=== PATIENT | male | born 1960 | race American Indian/Alaskan Native ===

== ENCOUNTER 2016-10-07 06:57 | Emergency (ER) | payer MEDICARE ==
[2016-10-07 08:16] LABS: Basophils % (Auto) 0.4 % (0.0-1.8); Eosinophils % (Auto) 4.9 % (0.0-4.3); Hematocrit 37.5 % (35.5-45.6); Mean Corpuscular HGB Conc 32 % (32-34); Mean Corpuscular Hemoglobin 27 pg (28-32); Mean Corpuscular Volume 84 fl (84-94); Platelet Count 170 K/mm3 (140-440); Red Blood Count 4.49 M/mm3 (3.65-5.03); Red Cell Distribution Width 14.5 % (13.2-15.2); White Blood Count 5.2 K/mm3 (4.5-11.0)
[2016-10-07 08:31] LABS: Creatine Kinase MB 1.6 ng/mL (0.0-4.0)
[2016-10-07 08:33] LABS: Anion Gap 15 mmol/L; BUN/Creatinine Ratio 13.07; Blood Urea Nitrogen 17 mg/dL (9-20); Calcium 9.1 mg/dL (8.4-10.2); Carbon Dioxide 28 mmol/L (22-30); Chloride 96.5 mmol/L (98-107); Creatine Kinase 178 units/L (55-170); Glucose 328 mg/dL (75-100); Potassium 5.1 mmol/L (3.6-5.0); Sodium 134 mmol/L (137-145)
--- NOTE | 2016-10-07 11:45 | Emergency Department Report ---
ED Extremity Problem HPI - General Chief complaint: Extremity Problem,Nontraumatic Stated complaint: LT SHOULDER PAIN AND ARM PAIN Time Seen by Provider: 10/07/16 11:31 Source: patient, RN notes reviewed Mode of arrival: Ambulatory Limitations: No Limitations - History of Present Illness Initial comments: 56-year-old male presents to the emergency department complaining of left shoulder pain that he states began 6 days ago. Pain has been intermittent. He states it radiates to the top of his left shoulder down his left arm to his wrist. He does report some mild numbness in his hand. He also states that he does feel slight pain in the left side of his neck. Pain is described as cramping in nature. He states occasionally he also has cramping pain in his left chest. He denies difficulty breathing, nausea, vomiting, dizziness, or diaphoresis. He denies injury. Review of the nursing notes shows that patient stated that symptoms started 6 weeks ago, but again the patient states this started 6 days ago. There are no other complaints. MD Complaint: extremity pain -: Gradual, days(s) (6) Location: left, upper extremity History of Same: No -: Yes myalgia Radiation: distal Severity scale (0 -10): 4 Quality: other (cramping) Consistency: intermittent Improves with: nothing Worsens with: nothing - Related Data Previous Rx's Medication Instructions Recorded Last Taken Type Omeprazole [PriLOSEC] 20 mg PO DAILY #30 capsule. 07/22/13 11/08/14 Rx Pravastatin Sodium [Pravastatin] 20 mg PO QHS #30 tablet 07/22/13 11/08/14 Rx Azithromycin [Zithromax Z-SERENE] 250 mg PO DAILY #6 tablet 11/08/14 Unknown Rx HYDROcodone/APAP 5-325 [[place] 1 each PO Q8HR PRN #10 tablet 11/08/14 Unknown Rx 5/325] Albuterol Sulfate [Ventolin HFA] 2 puff IH Q4H PRN #1 hfa.aer.ad 03/08/15 Unknown Rx Azithromycin [Zithromax] 250 mg PO QDAY #4 tablet 03/08/15 Unknown Rx Promethazine /Codeine 5 ml PO Q6H PRN #120 ml 03/08/15 Unknown Rx [Phenergan/Codeine 6.25-10 mg/5Ml] Docusate Sodium [Colace] 100 mg PO BID PRN #20 capsule 05/06/16 Unknown Rx HYDROcodone/APAP 5-325 [[place] 1 each PO Q6HR PRN #10 tablet 05/06/16 Unknown Rx 5/325] metFORMIN [Glucophage] 1,000 mg PO BID #60 tablet 07/31/16 Unknown Rx Cyclobenzaprine [Flexeril] 10 mg PO TID PRN #20 tablet 10/07/16 Unknown Rx Lisinopril [Zestril TAB] 20 mg PO QDAY #30 tablet 10/07/16 Unknown Rx Prednisone [predniSONE 5 mg (6-Day 5 mg PO .TAPER #1 tab.ds.pk 10/07/16 Unknown Rx Pack, 21 Tabs)] Allergies Allergy/AdvReac Type Severity Reaction Status Date / Time Penicillins Allergy Swelling Verified 02/21/13 02:27 ED Review of Systems ROS: Stated complaint: LT SHOULDER PAIN AND ARM PAIN Other details as noted in HPI Comment: All other systems reviewed and negative Musculoskeletal: as per HPI (left shoulder pain) Neurological: paresthesias ED Past Medical Hx - Past Medical History Previous Medical History?: Yes Hx Hypertension: Yes Hx Diabetes: Yes Additional medical history: Rhabdomyolysis. Gout - Surgical History Past Surgical History?: No - Family History Family history: no significant - Social History Smoking Status: Never Smoker Substance Use Type: None - Medications Home Medications: Home Medications Medication Instructions Recorded Confirmed Last Taken Type Omeprazole [PriLOSEC] 20 mg PO DAILY #30 capsule. 07/22/13 11/08/14 11/08/14 Rx Pravastatin Sodium [Pravastatin] 20 mg PO QHS #30 tablet 07/22/13 11/08/1411/08 Rx Azithromycin [Zithromax Z-SERENE] 250 mg PO DAILY #6 tablet 11/08/14 Unknown Rx HYDROcodone/APAP 5-325 [[place] 1 each PO Q8HR PRN #10 tablet 11/08/14 Unknown Rx 5/325] Albuterol Sulfate [Ventolin HFA] 2 puff IH Q4H PRN #1 hfa.aer.ad 03/08/15 Unknown Rx Azithromycin [Zithromax] 250 mg PO QDAY #4 tablet 03/08/15 Unknown Rx Promethazine /Codeine 5 ml PO Q6H PRN #120 ml 03/08/15 Unknown Rx [Phenergan/Codeine 6.25-10 mg/5Ml] Docusate Sodium [Colace] 100 mg PO BID PRN #20 capsule 05/06/16 Unknown Rx HYDROcodone/APAP 5-325 [[place] 1 each PO Q6HR PRN #10 tablet 05/06/16 Unknown Rx 5/325] metFORMIN [Glucophage] 1,000 mg PO BID #60 tablet 07/31/16 Unknown Rx Cyclobenzaprine [Flexeril] 10 mg PO TID PRN #20 tablet 10/07/16 Unknown Rx Lisinopril [Zestril TAB] 20 mg PO QDAY #30 tablet 10/07/16 Unknown Rx Prednisone [predniSONE 5 mg (6-Day 5 mg PO .TAPER #1 tab.ds.pk 10/07/16 Unknown Rx Pack, 21 Tabs)] ED Physical Exam - General Limitations: No Limitations General appearance: alert, in no apparent distress - Head Head exam: Present: atraumatic, normocephalic - Eye Eye exam: Present: normal appearance, PERRL, EOMI - ENT ENT exam: Present: normal exam, normal orophraynx, mucous membranes moist - Neck Neck exam: Present: normal inspection, full ROM. Absent: tenderness - Respiratory Respiratory exam: Present: normal lung sounds bilaterally. Absent: respiratory distress, chest wall tenderness - Cardiovascular Cardiovascular Exam: Present: regular rate, normal rhythm, normal heart sounds - GI/Abdominal GI/Abdominal exam: Present: soft, normal bowel sounds. Absent: distended, tenderness - Extremities Exam Extremities exam: Present: normal inspection, full ROM, tenderness (mild tenderness to palpation of the left superior deltoid and trapezius muscle. No spasm noted.) - Back Exam Back exam: Present: normal inspection, full ROM. Absent: tenderness - Neurological Exam Neurological exam: Present: alert, oriented X3. Absent: motor sensory deficit - Skin Skin exam: Present: warm, dry, intact ED Course Vital Signs 10/07/16 07:41 Temperature 97.8 F Pulse Rate 58 L Respiratory 20 Rate Blood Pressure 151/76 O2 Sat by Pulse 100 Oximetry ED Medical Decision Making - Lab Data Result diagrams: 10/07/16 08:02 10/07/16 08:02 - EKG Data -: EKG Interpreted by Me EKG shows normal: sinus rhythm, axis, intervals, QRS complexes Rate: bradycardia - EKG Data When compared to previous EKG there are: no significant change Interpretation: unchanged when compared t (11/07/2014), nonspecific ST-T wave abril - Medical Decision Making Lab results reviewed and discussed with the patient. Symptoms and exam findings are consistent with cervical radiculopathy. Patient will be treated symptomatically and discharged home to follow up with his primary care physician. - Differential Diagnosis atypical chest pain, cervical radiculopathy, muscle spasm Critical care attestation.: If time is entered above; I have spent that time in minutes in the direct care of this critically ill patient, excluding procedure time. ED Disposition Clinical Impression: Cervical radiculopathy Disposition: DISCHARGED TO HOME OR SELFCARE Is pt being admited?: No Condition: Stable Instructions: Cervical Radiculopathy (ED) Prescriptions: Cyclobenzaprine [Flexeril] 10 mg PO TID PRN #20 tablet PRN Reason: Muscle Spasm Lisinopril [Zestril TAB] 20 mg PO QDAY #30 tablet Prednisone [predniSONE 5 mg (6-Day Pack, 21 Tabs)] 5 mg PO .TAPER #1 tab.ds.pk Referrals: PRIMARY CARE, [Primary Care Provider] - 3-5 Days Time of Disposition: 11:45
[2016-10-07 12:05] VITALS: BP 151/72
== END 2016-10-07 12:03 | disposition home or self-care (01) ==
LOC: ED 06:57
DX: M54.12 Radiculopathy, cervical region (principal); I10 Essential (primary) hypertension; E11.9 Type 2 diabetes mellitus without complications
CPT/HCPCS: 36415; 80048; 82550; 82553; 82962; 84484; 85025; 93005; 93010; 99284

== ENCOUNTER 2017-02-15 07:09 | Emergency (ER) | payer MEDICARE ==
[2017-02-15 08:26] LABS: Basophils % (Auto) 0.5 % (0.0-1.8); Eosinophils % (Auto) 5.3 % (0.0-4.3); Hematocrit 39.2 % (35.5-45.6); Hemoglobin 12.7 gm/dl (11.8-15.2); Mean Corpuscular HGB Conc 32 % (32-34); Mean Corpuscular Hemoglobin 27 pg (28-32); Mean Corpuscular Volume 83 fl (84-94); Platelet Count 200 K/mm3 (140-440); Red Blood Count 4.73 M/mm3 (3.65-5.03); Red Cell Distribution Width 13.9 % (13.2-15.2); White Blood Count 5.8 K/mm3 (4.5-11.0)
[2017-02-15 08:26] LABS: Bilirubin,Urine NEG (Negative); Blood,Urine NEG (Negative); Ketones,Urine NEG (Negative); Leukocyte Esterase,Urine NEG (Negative); Mucus,Urine FEW /HPF; Nitrite,Urine NEG (Negative); Protein,Urine <15 mg/dL mg/dL (Negative); Urobilinogen,Urine < 2.0 mg/dL (<2.0); WBC,Urine < 1.0 /HPF (0.0-6.0)
[2017-02-15 08:31] LABS: Anion Gap 19 mmol/L; BUN/Creatinine Ratio 25.83; Blood Urea Nitrogen 31 mg/dL (9-20); Calcium 9.7 mg/dL (8.4-10.2); Carbon Dioxide 23 mmol/L (22-30); Chloride 95.1 mmol/L (98-107); Glucose 297 mg/dL (75-100); Potassium 4.5 mmol/L (3.6-5.0); Sodium 133 mmol/L (137-145)
[2017-02-15] MEDS ORDERED: NACL 0.9% 1000 ML 1,000 ML IV ONE (10:48)
--- NOTE | 2017-02-15 14:15 | Emergency Department Report ---
HPI - General Chief Complaint: Weakness Time Seen by Provider: 02/15/17 10:43 - HPI HPI: The patient is a 56-year-old male who presents for evaluation of tiredness and lightheadedness for the past week. The patient states that his tiredness and lightheadedness have been moderate in severity, exacerbated with standing and exertion, improved with rest and lying down, constant for the past one day. He has a history of diabetes. The patient denies fever, neck pain, parasthesias, dyspnea, cough, hemoptysis, palpitations, syncope, unilateral leg swelling, calf muscle pain, abd pain, n/v, diarrhea, headache, neuro deficits. ED Past Medical Hx - Past Medical History Previous Medical History?: Yes Hx Hypertension: Yes Hx Diabetes: Yes Additional medical history: Rhabdomyolysis. Gout - Surgical History Past Surgical History?: No - Social History Smoking Status: Former Smoker Substance Use Type: Alcohol, Prescribed - Medications Home Medications: Home Medications Medication Instructions Recorded Confirmed Last Taken Type Omeprazole [PriLOSEC] 20 mg PO DAILY #30 capsule. 07/22/13 11/08/14 11/08/14 Rx Pravastatin Sodium [Pravastatin] 20 mg PO QHS #30 tablet 07/22/13 11/08/1411/08 Rx Azithromycin [Zithromax Z-SERENE] 250 mg PO DAILY #6 tablet 11/08/14 Unknown Rx HYDROcodone/APAP 5-325 [[place] 1 each PO Q8HR PRN #10 tablet 11/08/14 Unknown Rx 5/325] Albuterol Sulfate [Ventolin HFA] 2 puff IH Q4H PRN #1 hfa.aer.ad 03/08/15 Unknown Rx Azithromycin [Zithromax] 250 mg PO QDAY #4 tablet 03/08/15 Unknown Rx Promethazine /Codeine 5 ml PO Q6H PRN #120 ml 03/08/15 Unknown Rx [Phenergan/Codeine 6.25-10 mg/5Ml] Docusate Sodium [Colace] 100 mg PO BID PRN #20 capsule 05/06/16 Unknown Rx HYDROcodone/APAP 5-325 [[place] 1 each PO Q6HR PRN #10 tablet 05/06/16 Unknown Rx 5/325] Cyclobenzaprine [Flexeril] 10 mg PO TID PRN #20 tablet 10/07/16 Unknown Rx Lisinopril [Zestril TAB] 20 mg PO QDAY #30 tablet 10/07/16 Unknown Rx Prednisone [predniSONE 5 mg (6-Day 5 mg PO .TAPER #1 tab.ds.pk 10/07/16 Unknown Rx Pack, 21 Tabs)] metFORMIN [Glucophage] 500 mg PO BID #30 tablet 02/15/17 Unknown Rx ED Review of Systems ROS: Stated complaint: DEHYDRATION Other details as noted in HPI Constitutional: reports weakness and lightheadedness denies: fever ENT: denies: throat or neck pain Respiratory: denies: cough, shortness of breath Cardiovascular: denies: chest pain Endocrine: denies unexplained weight loss or gain Gastrointestinal: denies: abdominal pain, nausea Genitourinary: denies: dysuria Musculoskeletal: denies: leg swelling Skin: denies: rash Neurological: denies: headache Hematological/Lymphatic: denies: easy bleeding or easy bruising Psych: denies sadness or hopelessness Physical Exam - Physical Exam Vital Signs: Vital Signs 02/15/17 02/15/17 02/15/17 07:31 10:49 10:53 Temperature 97.7 F Pulse Rate 58 L 55 L Respiratory 16 16 Rate Blood Pressure 114/63 Blood Pressure 123/66 [Left] O2 Sat by Pulse 97 100 Oximetry 02/15/17 02/15/17 02/15/17 11:00 11:16 11:30 Temperature Pulse Rate Respiratory Rate Blood Pressure 129/77 129/77 119/56 Blood Pressure [Left] O2 Sat by Pulse 93 96 97 Oximetry 02/15/17 02/15/17 02/15/17 11:46 12:00 12:16 Temperature Pulse Rate Respiratory Rate Blood Pressure 129/77 113/58 119/56 Blood Pressure [Left] O2 Sat by Pulse 99 97 100 Oximetry 02/15/17 02/15/17 12:30 12:46 Temperature Pulse Rate Respiratory Rate Blood Pressure 123/66 113/58 Blood Pressure [Left] O2 Sat by Pulse 100 100 Oximetry Physical Exam: General: well-nourished, well-developed, no acute distress Head: Normocephalic, atraumatic Eyes: normal sclera ENT: Mucous membranes are pale and dry Neck: No neck stiffness, no cervical adenopathy Respiratory: Breath sounds equal bilaterally, no wheezing, rales, or rhonchi Cardio: S1 and S2 present, no murmurs, rubs, gallops, capillary refill is delayed Abdomen: Normoactive bowel sounds, soft abdomen, no rigidity, no guarding or rebound tenderness Chest WALL/Back: No tenderness to palpation of the chest wall, no CVA tenderness with percussion Musc: No pitting edema Skin: No rash Neuro: alert oriented x4, normal cognition, speech normal, PERRL, EOM intact, no facial drooping, no uvula or tongue deviation on protrusion, no deficit with rotation of neck or shoulder shrug, no obvious gross motor deficit in the upper or lower extremities with flexion or extension at the shoulder, elbow, wrist, hip, knee, or ankle bilaterally, no obvious gross sensation deficit to crude touch or 2 pt discrimination, 2+ symmetric reflexes on DTR testing, no coordination deficit with [id number] or [id number] testing,, Babinski downgoing, romberg negative, patient able to to ambulate without abnormal gait Psych: Normal affect ED Course Vital Signs 02/15/17 02/15/17 02/15/17 07:31 10:49 10:53 Temperature 97.7 F Pulse Rate 58 L 55 L Respiratory 16 16 Rate Blood Pressure 114/63 Blood Pressure 123/66 [Left] O2 Sat by Pulse 97 100 Oximetry 02/15/17 02/15/17 02/15/17 11:00 11:16 11:30 Temperature Pulse Rate Respiratory Rate Blood Pressure 129/77 129/77 119/56 Blood Pressure [Left] O2 Sat by Pulse 93 96 97 Oximetry 02/15/17 02/15/17 02/15/17 11:46 12:00 12:16 Temperature Pulse Rate Respiratory Rate Blood Pressure 129/77 113/58 119/56 Blood Pressure [Left] O2 Sat by Pulse 99 97 100 Oximetry 02/15/17 02/15/17 12:30 12:46 Temperature Pulse Rate Respiratory Rate Blood Pressure 123/66 113/58 Blood Pressure [Left] O2 Sat by Pulse 100 100 Oximetry ED Medical Decision Making - Lab Data Result diagrams: 02/15/17 07:44 02/15/17 07:44 - Medical Decision Making The patient was seen and examined by myself. The patient is placed on a monitor technician and continuous pulse ox. On initial evaluation, the patient was found to be in no distress. Evaluation orders were placed. The patient is given 1 L normal saline fluid bolus for treatment of dehydration. Lab results reveal elevated glucose level of 311, with normal bicarbonate and anion gap, not consistent with DKA. The patient given 10 units of insulin IV for treatment of his hyperglycemia. The patient was reevaluated and reported that their symptoms were markedly improved. The patient is stable for discharge with outpatient follow-up. The patient is given follow-up and return instructions. The patient expressed understanding and agreed with the plan. The patient is discharged in stable condition. Critical care attestation.: If time is entered above; I have spent that time in minutes in the direct care of this critically ill patient, excluding procedure time. ED Disposition Clinical Impression: Orthostatic lightheadedness, Generalized weakness, Dehydration, Acute hyperglycemia Disposition: DC- TO HOME OR SELFCARE Is pt being admited?: No Does the pt Need Aspirin: No Condition: Stable Instructions: Diabetic Hyperglycemia (ED), Dehydration (ED), Weakness (ED) Prescriptions: metFORMIN [Glucophage] 500 mg PO BID #30 tablet Referrals: PRIMARY CAREMD [Primary Care Provider] - 3-5 Days [facility] [Provider Group] - 3-5 Days Time of Disposition: 14:13
[2017-02-15 14:40] VITALS: BP 125/69
== END 2017-02-15 14:42 | disposition home or self-care (01) ==
LOC: ED 07:09
DX: R42 Dizziness and giddiness (principal); R53.1 Weakness; E86.0 Dehydration; E11.65 Type 2 diabetes mellitus with hyperglycemia; I10 Essential (primary) hypertension; M10.9 Gout, unspecified; Z87.891 Personal history of nicotine dependence; Z88.0 Allergy status to penicillin
CPT/HCPCS: 36415; 80048; 81001; 82805; 82962; 85025; 96361; 96374; 99284; J7030; J1815

== ENCOUNTER 2017-02-23 00:03 | Emergency (ER) | payer MEDICARE ==
[2017-02-23 02:39] LABS: Basophils % (Auto) 0.4 % (0.0-1.8); Eosinophils % (Auto) 4.3 % (0.0-4.3); Hematocrit 37.3 % (35.5-45.6); Hemoglobin 12.2 gm/dl (11.8-15.2); Mean Corpuscular HGB Conc 33 % (32-34); Mean Corpuscular Hemoglobin 28 pg (28-32); Mean Corpuscular Volume 84 fl (84-94); Platelet Count 200 K/mm3 (140-440); Red Blood Count 4.44 M/mm3 (3.65-5.03); White Blood Count 6.2 K/mm3 (4.5-11.0)
[2017-02-23 02:40] LABS: BUN/Creatinine Ratio 22.5; Calcium 9.2 mg/dL (8.4-10.2); Chloride 97.6 mmol/L (98-107); Potassium 5.1 mmol/L (3.6-5.0)
[2017-02-23 03:39] LABS: Bilirubin,Urine NEG (Negative); Blood,Urine NEG (Negative); Ketones,Urine NEG (Negative); Leukocyte Esterase,Urine NEG (Negative); Mucus,Urine FEW /HPF; Nitrite,Urine NEG (Negative); Protein,Urine <15 mg/dL mg/dL (Negative); Urobilinogen,Urine < 2.0 mg/dL (<2.0)
[2017-02-23 08:46] VITALS: BP 143/71
== END 2017-02-23 09:10 | disposition left against medical advice (07) ==
LOC: ED 00:03
DX: R73.9 Hyperglycemia, unspecified (principal); Z53.21 Procedure and treatment not carried out due to patient leaving prior to being seen by health care provider; Z88.0 Allergy status to penicillin
CPT/HCPCS: 36415; 80048; 81001; 82805; 82962; 85025

== ENCOUNTER 2018-06-27 00:44 | Emergency (ER) | payer MEDICARE ==
[2018-06-27 02:30] LABS: Basophils % (Auto) 0.4 % (0.0-1.8); Eosinophils # (Auto) 0.3 K/mm3 (0.0-0.4); Eosinophils % (Auto) 4.6 % (0.0-4.3); Hematocrit 39.6 % (35.5-45.6); Hemoglobin 12.7 gm/dl (11.8-15.2); Lymphocytes # (Auto) 1.1 K/mm3 (1.2-5.4); Lymphocytes % (Auto) 18.2 % (13.4-35.0); Mean Corpuscular HGB Conc 32 % (32-34); Mean Corpuscular Volume 85 fl (84-94); Monocytes # (Auto) 0.6 K/mm3 (0.0-0.8); Monocytes % (Auto) 9.2 % (0.0-7.3); Platelet Count 172 K/mm3 (140-440); Red Blood Count 4.64 M/mm3 (3.65-5.03); Red Cell Distribution Width 14.3 % (13.2-15.2)
[2018-06-27 02:47] LABS: BUN/Creatinine Ratio 15; Blood Urea Nitrogen 18 mg/dL (9-20); Calcium 9.4 mg/dL (8.4-10.2); Hemolysis Index 10
[2018-06-27 03:03] LABS: Bilirubin,Urine NEG (Negative); Blood,Urine NEG (Negative); Color,Urine Colorless (Yellow); Hyaline Casts,Urine 1 /LPF; Mucus,Urine FEW /HPF; Protein,Urine <15 mg/dL mg/dL (Negative); Urobilinogen,Urine < 2.0 mg/dL (<2.0)
[2018-06-27] MEDS ORDERED: HumuLIN R SUB-Q ONE (03:54)
--- NOTE | 2018-06-27 03:55 | Emergency Department Report ---
ED General Adult HPI - General Chief complaint: Hyperglycemia Stated complaint: HIGH BLOOD SUGAR Time Seen by Provider: 06/27/18 03:30 Source: patient Mode of arrival: Ambulatory Limitations: No Limitations - History of Present Illness Initial comments: 58-year-old -[place] male with past medical history of diabetes presents to emergency department complaining of having a spike in his blood sugar at the drink some apple juice, or are strews along with some peanut butter. States he is on a weekly insulin and does not have any regular insulin for blood sugar splines does take metformin as prescribed and his lisinopril for hypertension. He denies any fever, chills, sweats, chest, palpitations, nausea, vomiting. Radiation: non-radiation Quality: aching Consistency: constant Improves with: none Worsens with: none Associated Symptoms: denies: denies other symptoms, confusion, diaphoresis, fever/chills, headaches, loss of appetite, rash Treatments Prior to Arrival: none - Related Data Previous Rx's Medication Instructions Recorded Last Taken Type Omeprazole [PriLOSEC] 20 mg PO DAILY #30 capsule. 07/22/13 11/08/14 Rx Pravastatin Sodium [Pravastatin] 20 mg PO QHS #30 tablet 07/22/13 11/08/14 Rx Azithromycin [Zithromax Z-SERENE] 250 mg PO DAILY #6 tablet 11/08/14 Unknown Rx HYDROcodone/APAP 5-325 [[place] 1 each PO Q8HR PRN #10 tablet 11/08/14 Unknown Rx 5/325] Albuterol Sulfate [Ventolin HFA] 2 puff IH Q4H PRN #1 hfa.aer.ad 03/08/15 Unknown Rx Azithromycin [Zithromax] 250 mg PO QDAY #4 tablet 03/08/15 Unknown Rx Promethazine /Codeine 5 ml PO Q6H PRN #120 ml 03/08/15 Unknown Rx [Phenergan/Codeine 6.25-10 mg/5Ml] Docusate Sodium [Colace] 100 mg PO BID PRN #20 capsule 05/06/16 Unknown Rx HYDROcodone/APAP 5-325 [[place] 1 each PO Q6HR PRN #10 tablet 05/06/16 Unknown Rx 5/325] Cyclobenzaprine [Flexeril] 10 mg PO TID PRN #20 tablet 10/07/16 Unknown Rx Lisinopril [Zestril TAB] 20 mg PO QDAY #30 tablet 10/07/16 Unknown Rx Prednisone [predniSONE 5 mg (6-Day 5 mg PO .TAPER #1 tab.ds.pk 10/07/16 Unknown Rx Pack, 21 Tabs)] metFORMIN [Glucophage] 500 mg PO BID #30 tablet 02/15/17 Unknown Rx Ondansetron (Nf) [Zofran TAB] 4 mg PO Q8HR PRN #20 tablet 05/17/18 Unknown Rx levoFLOXacin [Levaquin TAB] 500 mg PO QDAY 10 Days #10 tablet 05/17/18 Unknown Rx traMADol [Ultram] 50 mg PO Q6HR PRN #20 tablet 05/17/18 Unknown Rx Allergies Allergy/AdvReac Type Severity Reaction Status Date / Time Penicillins Allergy Swelling Verified 02/21/13 02:27 ED Review of Systems ROS: Stated complaint: HIGH BLOOD SUGAR Other details as noted in HPI Constitutional: denies: chills, fever Eyes: denies: eye pain, eye discharge, vision change ENT: denies: ear pain, throat pain Respiratory: denies: cough, shortness of breath, wheezing Cardiovascular: denies: chest pain, palpitations Endocrine: no symptoms reported Gastrointestinal: denies: abdominal pain, nausea, diarrhea Genitourinary: denies: urgency, dysuria Musculoskeletal: denies: back pain, joint swelling, arthralgia Skin: denies: rash, lesions Neurological: denies: headache, weakness, paresthesias Psychiatric: denies: anxiety, depression Hematological/Lymphatic: denies: easy bleeding, easy bruising ED Past Medical Hx - Past Medical History Previous Medical History?: Yes Hx Hypertension: Yes Hx Diabetes: Yes Additional medical history: Rhabdomyolysis. Gout. Pneumonia - Surgical History Past Surgical History?: Yes Additional Surgical History: arm - Social History Smoking Status: Never Smoker Substance Use Type: None - Medications Home Medications: Home Medications Medication Instructions Recorded Confirmed Last Taken Type Omeprazole [PriLOSEC] 20 mg PO DAILY #30 capsule. 07/22/13 11/08/14 11/08/14 Rx Pravastatin Sodium [Pravastatin] 20 mg PO QHS #30 tablet 07/22/13 11/08/14 Rx Azithromycin [Zithromax Z-SERENE] 250 mg PO DAILY #6 tablet 11/08/14 Unknown Rx HYDROcodone/APAP 5-325 [[place] 1 each PO Q8HR PRN #10 tablet 11/08/14 Unknown Rx 5/325] Albuterol Sulfate [Ventolin HFA] 2 puff IH Q4H PRN #1 hfa.aer.ad 03/08/15 Unknown Rx Azithromycin [Zithromax] 250 mg PO QDAY #4 tablet 03/08/15 Unknown Rx Promethazine /Codeine 5 ml PO Q6H PRN #120 ml 03/08/15 Unknown Rx [Phenergan/Codeine 6.25-10 mg/5Ml] Docusate Sodium [Colace] 100 mg PO BID PRN #20 capsule 05/06/16 Unknown Rx HYDROcodone/APAP 5-325 [[place] 1 each PO Q6HR PRN #10 tablet 05/06/16 Unknown Rx 5/325] Cyclobenzaprine [Flexeril] 10 mg PO TID PRN #20 tablet 10/07/16 Unknown Rx Lisinopril [Zestril TAB] 20 mg PO QDAY #30 tablet 10/07/16 Unknown Rx Prednisone [predniSONE 5 mg (6-Day 5 mg PO .TAPER #1 tab.ds.pk 10/07/16 Unknown Rx Pack, 21 Tabs)] metFORMIN [Glucophage] 500 mg PO BID #30 tablet 02/15/17 Unknown Rx Ondansetron (Nf) [Zofran TAB] 4 mg PO Q8HR PRN #20 tablet 05/17/18 Unknown Rx levoFLOXacin [Levaquin TAB] 500 mg PO QDAY 10 Days #10 tablet 05/17/18 Unknown Rx traMADol [Ultram] 50 mg PO Q6HR PRN #20 tablet 05/17/18 Unknown Rx ED Physical Exam - General Limitations: No Limitations General appearance: alert, in no apparent distress - Head Head exam: Present: atraumatic, normocephalic - Eye Eye exam: Present: normal appearance, PERRL, EOMI Pupils: Present: normal accommodation - ENT ENT exam: Present: mucous membranes moist - Neck Neck exam: Present: normal inspection - Respiratory Respiratory exam: Present: normal lung sounds bilaterally. Absent: respiratory distress - Cardiovascular Cardiovascular Exam: Present: regular rate, normal rhythm. Absent: systolic murmur, diastolic murmur, rubs, gallop - GI/Abdominal GI/Abdominal exam: Present: soft, normal bowel sounds - Rectal Rectal exam: Present: deferred - Extremities Exam Extremities exam: Present: normal inspection - Back Exam Back exam: Present: normal inspection - Neurological Exam Neurological exam: Present: alert, oriented X3 - Psychiatric Psychiatric exam: Present: normal affect, normal mood - Skin Skin exam: Present: warm, dry, intact, normal color. Absent: rash ED Course Vital Signs 06/27/18 01:56 Temperature 98.4 F Pulse Rate 72 Respiratory 18 Rate Blood Pressure 159/88 O2 Sat by Pulse 99 Oximetry ED Medical Decision Making - Lab Data Result diagrams: 06/27/18 02:18 06/27/18 02:18 - Medical Decision Making Pes cavus to molars on diabetes and insulin use also educated him on his diet. Blood sugar in the emergency department to 299 and his laboratory data showed no signs of any DKA or hyperosmolar nonketotic state Critical care attestation.: If time is entered above; I have spent that time in minutes in the direct care of this critically ill patient, excluding procedure time. ED Disposition Clinical Impression: Hyperglycemia Disposition: DC-01 TO HOME OR SELFCARE Is pt being admited?: No Does the pt Need Aspirin: No Condition: Stable Instructions: Diabetic Hyperglycemia (ED) Referrals: LITTLE DUNBAR MD [Primary Care Provider] - 3-5 Days
[2018-06-27 07:20] VITALS: BP 148/90
== END 2018-06-27 07:50 | disposition home or self-care (01) ==
LOC: ED 00:44
DX: E11.65 Type 2 diabetes mellitus with hyperglycemia (principal); I10 Essential (primary) hypertension; M10.9 Gout, unspecified; Z79.899 Other long term (current) drug therapy; Z88.0 Allergy status to penicillin
CPT/HCPCS: 36415; 80048; 81001; 82805; 82962; 85025; 96372; J1815

== ENCOUNTER 2018-07-06 21:19 | Emergency (ER) | payer MEDICARE ==
[2018-07-06 22:16] VITALS: BP 151/77
--- NOTE | 2018-07-06 22:16 | Emergency Department Report ---
Blank Doc - Documentation Documentation: 58 y.o. male presents with suspension of hyperglycemia. Patient reports a hea dache that is 10/10 sharp in intensity to frontal. Headache started today while at work. History of diabetes and on insulin. Currently on trulicity and took new RX to pharmacy today. POC glucose [address] for evaluation
--- NOTE | 2018-07-06 23:09 | Emergency Department Report ---
ED Recheck HPI - General Chief Complaint: Extremity Injury, Upper Stated Complaint: HBP Time Seen by Provider: 07/06/18 22:11 Source: patient Mode of arrival: Ambulatory Limitations: No Limitations - History of Present Illness Initial Comments: This is a 58-year-old -[place] male represents for evaluation of blood glucose and headache. Patient states he was working on a car and felt like his sugar was elevated. He came male with a suspicion of hyperglycemia. Past medical history of diabetes and hypertension. Patient states he is currently taking trulicity once a week. He was given a new diabetes prescription by his primary care provider Dr. Ordoñez. He took prescription to pharmacy today. He also complains of a headache that is 10/10 sharp in intensity to frontal. Headache started today while at work. History of diabetes and on insulin. MD Complaint: other (glucose check) -: This afternoon Symptoms Since Prior Visit: no new symptoms Context: ran out of medication Associated Symptoms: none - Related Data Previous Rx's Medication Instructions Recorded Last Taken Type Omeprazole [PriLOSEC] 20 mg PO DAILY #30 capsule. 07/22/13 11/08/14 Rx Pravastatin Sodium [Pravastatin] 20 mg PO QHS #30 tablet 07/22/13 11/08/14 Rx Azithromycin [Zithromax Z-SERENE] 250 mg PO DAILY #6 tablet 11/08/14 Unknown Rx HYDROcodone/APAP 5-325 [[place] 1 each PO Q8HR PRN #10 tablet 11/08/14 Unknown Rx 5/325] Albuterol Sulfate [Ventolin HFA] 2 puff IH Q4H PRN #1 hfa.aer.ad 03/08/15 Unknown Rx Azithromycin [Zithromax] 250 mg PO QDAY #4 tablet 03/08/15 Unknown Rx Promethazine /Codeine 5 ml PO Q6H PRN #120 ml 03/08/15 Unknown Rx [Phenergan/Codeine 6.25-10 mg/5Ml] Docusate Sodium [Colace] 100 mg PO BID PRN #20 capsule 05/06/16 Unknown Rx HYDROcodone/APAP 5-325 [[place] 1 each PO Q6HR PRN #10 tablet 05/06/16 Unknown Rx 5/325] Cyclobenzaprine [Flexeril] 10 mg PO TID PRN #20 tablet 10/07/16 Unknown Rx Lisinopril [Zestril TAB] 20 mg PO QDAY #30 tablet 10/07/16 Unknown Rx Prednisone [predniSONE 5 mg (6-Day 5 mg PO .TAPER #1 tab.ds.pk 10/07/16 Unknown Rx Pack, 21 Tabs)] metFORMIN [Glucophage] 500 mg PO BID #30 tablet 02/15/17 Unknown Rx Ondansetron (Nf) [Zofran TAB] 4 mg PO Q8HR PRN #20 tablet 05/17/18 Unknown Rx levoFLOXacin [Levaquin TAB] 500 mg PO QDAY 10 Days #10 tablet 05/17/18 Unknown Rx traMADol [Ultram] 50 mg PO Q6HR PRN #20 tablet 05/17/18 Unknown Rx traMADol [Ultram 50 MG tab] 50 mg PO Q6HR PRN #12 tablet 07/06/18 Unknown Rx Allergies Allergy/AdvReac Type Severity Reaction Status Date / Time Penicillins Allergy Swelling Verified 02/21/13 02:27 ED Review of Systems ROS: Stated complaint: HBP Other details as noted in HPI Constitutional: denies: chills, fever Respiratory: denies: cough, shortness of breath, wheezing Cardiovascular: denies: chest pain, palpitations Gastrointestinal: denies: abdominal pain, nausea, diarrhea Neurological: denies: headache, weakness, paresthesias Psychiatric: denies: anxiety, depression ED Past Medical Hx - Past Medical History Previous Medical History?: Yes Hx Hypertension: Yes Hx Diabetes: Yes Additional medical history: Rhabdomyolysis. Gout. Pneumonia - Surgical History Past Surgical History?: Yes Additional Surgical History: arm - Social History Smoking Status: Never Smoker Substance Use Type: None - Medications Home Medications: Home Medications Medication Instructions Recorded Confirmed Last Taken Type Omeprazole [PriLOSEC] 20 mg PO DAILY #30 capsule. 07/22/13 11/08/14 11/08/14 Rx Pravastatin Sodium [Pravastatin] 20 mg PO QHS #30 tablet 07/22/13 11/08/14 11/08/14 Rx Azithromycin [Zithromax Z-SERENE] 250 mg PO DAILY #6 tablet 11/08/14 Unknown Rx HYDROcodone/APAP 5-325 [[place] 1 each PO Q8HR PRN #10 tablet 11/08/14 Unknown Rx 5/325] Albuterol Sulfate [Ventolin HFA] 2 puff IH Q4H PRN #1 hfa.aer.ad 03/08/15 Unknown Rx Azithromycin [Zithromax] 250 mg PO QDAY #4 tablet 03/08/15 Unknown Rx Promethazine /Codeine 5 ml PO Q6H PRN #120 ml 03/08/15 Unknown Rx [Phenergan/Codeine 6.25-10 mg/5Ml] Docusate Sodium [Colace] 100 mg PO BID PRN #20 capsule 05/06/16 Unknown Rx HYDROcodone/APAP 5-325 [[place] 1 each PO Q6HR PRN #10 tablet 05/06/16 Unknown Rx 5/325] Cyclobenzaprine [Flexeril] 10 mg PO TID PRN #20 tablet 10/07/16 Unknown Rx Lisinopril [Zestril TAB] 20 mg PO QDAY #30 tablet 10/07/16 Unknown Rx Prednisone [predniSONE 5 mg (6-Day 5 mg PO .TAPER #1 tab.ds.pk 10/07/16 Unknown Rx Pack, 21 Tabs)] metFORMIN [Glucophage] 500 mg PO BID #30 tablet 02/15/17 Unknown Rx Ondansetron (Nf) [Zofran TAB] 4 mg PO Q8HR PRN #20 tablet 05/17/18 Unknown Rx levoFLOXacin [Levaquin TAB] 500 mg PO QDAY 10 Days #10 tablet 05/17/18 Unknown Rx traMADol [Ultram] 50 mg PO Q6HR PRN #20 tablet 05/17/18 Unknown Rx traMADol [Ultram 50 MG tab] 50 mg PO Q6HR PRN #12 tablet 07/06/18 Unknown Rx ED Physical Exam - General Limitations: No Limitations General appearance: alert, in no apparent distress, obese (morbidly obese) - Respiratory Respiratory exam: Present: normal lung sounds bilaterally. Absent: respiratory distress - Cardiovascular Cardiovascular Exam: Present: regular rate, normal rhythm. Absent: systolic murmur, diastolic murmur, rubs, gallop - GI/Abdominal GI/Abdominal exam: Present: soft, normal bowel sounds. Absent: distended, tenderness, guarding, rebound, rigid, organomegaly, mass - Neurological Exam Neurological exam: Present: alert, oriented X3 - Psychiatric Psychiatric exam: Present: normal affect, normal mood - Skin Skin exam: Present: warm, dry, intact, normal color. Absent: rash ED Course Vital Signs 07/06/18 07/06/18 21:31 22:10 Temperature 98.3 F 98.3 F Pulse Rate 78 77 Respiratory 16 16 Rate Blood Pressure 151/77 Blood Pressure 151/77 [Left] O2 Sat by Pulse 98 99 Oximetry ED Recheck MDM - Differential Diagnosis Prescription Refill(s) - Medical Decision Making This is a 58 y.o. male that presents for evaluation of hyperglycemia and a headache. History of diabetes and hypertension. Reports PCP added a new medication for diabetes which she took the pharmacy today. Patient was examined by me and stable. Obtained [id number] glucose. Glucose 192. Given Toradol 30 mg IM once while in ER for headache. Instructed to feel prescription given by Dr. Ordoñez who is primary care provider. Educated on diet and use of insulin. Instructed to continue current regimen and follow up with PCP in the next 2-3 days. Instructed to take pain medication as soon as headache starts. Discussed plan with patient and agreed to plan. No further questions noted by the patient. Discharged home in stable condition. Critical care attestation.: If time is entered above; I have spent that time in minutes in the direct care of this critically ill patient, excluding procedure time. ED Disposition Clinical Impression: Blood glucose elevated Migraine Qualifiers: Migraine type: without aura Status migrainosus presence: without status migrainosus Intractability: not intractable Qualified Code(s): G43.009 - Migraine without aura, not intractable, without status migrainosus Disposition: DC-01 TO HOME OR SELFCARE Is pt being admited?: No Does the pt Need Aspirin: No Condition: Stable Instructions: Diabetes Mellitus Type 2 in Adults (ED), Meal Planning with Diabetes Exchanges (DC), Migraine Headache (ED) Additional Instructions: Never discontinue insulin without discussion with doctor. Low blood sugar is often accompanied by symptoms such as tachycardia, sweating, shakiness, intense hunger, or confusion, and must be dealt with promptly by eating a carbohydrate such as apple or drink juice. After self-treatment, blood sugar should be checked if possible. Return to ER or f/u with ER promptly is blood glucose drops below 70 or greater than 150 so that therapy may be adjusted. Eat a carbohydrate snack prior to exercise if blood glucose is less than 100. Take medication at start of headache. Moderate caffeine intake. Eat at scheduled times or 3 meals a day with snacks. Follow up with Primary Care Provider Dr. Ordoñez in 2-4 days. Prescriptions: traMADol [Ultram 50 MG tab] 50 mg PO Q6HR PRN #12 tablet PRN Reason: Pain Referrals: ANOOP ORDOÑEZ MD [Primary Care Provider] - 3-5 Days Time of Disposition: 23:28
== END 2018-07-06 23:42 | disposition home or self-care (01) ==
LOC: ED 21:19
DX: E11.65 Type 2 diabetes mellitus with hyperglycemia (principal); G43.009 Migraine without aura, not intractable, without status migrainosus; I10 Essential (primary) hypertension; Z88.0 Allergy status to penicillin
CPT/HCPCS: 82962

== ENCOUNTER 2018-10-31 23:28 | Emergency (ER) | payer MEDICARE, OTHER ==
[2018-10-31 23:36] VITALS: BP 167/66
[2018-11-01] MEDS ORDERED: ZOFRAN ODT PO ONE (01:58)
[2018-11-01] MEDS ORDERED: IBUPROFEN PO ONE (01:58)
[2018-11-01] MEDS ORDERED: NORCO 5/325 PO ONE (01:58)
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
== END 2018-11-01 03:45 | disposition home or self-care (01) ==
LOC: ED 23:28
DX: M62.830 Muscle spasm of back (principal); Y99.8 Other external cause status; I10 Essential (primary) hypertension; E11.9 Type 2 diabetes mellitus without complications; V18.2XXA Unspecified pedal cyclist injured in noncollision transport accident in nontraffic accident, initial encounter; Y93.89 Activity, other specified; Y92.89 Other specified places as the place of occurrence of the external cause; M54.5 Low back pain
CPT/HCPCS: 72100; Q0162

== ENCOUNTER 2020-02-04 21:09 | Emergency (ER) | payer MEDICARE ==
--- NOTE | 2020-02-04 23:51 | Emergency Department Report ---
ED General Adult HPI - General Chief complaint: High BP Stated complaint: HYPERTENSION Source: patient, EMS Mode of arrival: Ambulatory Limitations: No Limitations - History of Present Illness Initial comments: Patient is a 59-year-old -Portuguese male with a history of type 2 diabetes, hypertension, chronic gout who presents to the ED with complaint of persistently elevated blood pressure for the last 4 hours despite taking his regular medications. Patient states that he checked his blood pressure and it was extremely high and decided come to the ED for evaluation. Patient states that the last time he took his blood pressure medications was over 12 hours ago and is scheduled to take another one but wanted to have his blood pressure rechecked first before he could take another dose. Patient denies headache, chest pain, shortness of breath, change in vision, dizziness, lightheadedness, syncope, palpitations, abdominal pain, nausea, vomiting, diaphoresis, numbness and tingling or weakness of upper and lower extremities bilaterally or neck pain. MD Complaint: elevated blood pressure -: Sudden, hour(s) (2) Radiation: non-radiation Severity scale (0 -10): 0 Consistency: constant Improves with: none Worsens with: none Associated Symptoms: denies other symptoms. denies: confusion, chest pain, cough, diaphoresis, fever/chills, headaches, loss of appetite, malaise, nausea/vomiting, rash, seizure, shortness of breath, syncope, weakness, other Treatments Prior to Arrival: none - Related Data Previous Rx's Medication Instructions Recorded Last Taken Type Omeprazole [PriLOSEC] 20 mg PO DAILY #30 capsule. 07/22/13 11/08/14 Rx Pravastatin Sodium [Pravastatin] 20 mg PO QHS #30 tablet 07/22/13 11/08/14 Rx Azithromycin [Zithromax Z-SERENE] 250 mg PO DAILY #6 tablet 11/08/14 Unknown Rx HYDROcodone/APAP 5-325 [[place] 1 each PO Q8HR PRN #10 tablet 11/08/14 Unknown Rx 5/325] Albuterol Sulfate [Ventolin HFA] 2 puff IH Q4H PRN #1 hfa.aer.ad 03/08/15 Unknown Rx Azithromycin [Zithromax] 250 mg PO QDAY #4 tablet 03/08/15 Unknown Rx Promethazine /Codeine 5 ml PO Q6H PRN #120 ml 03/08/15 Unknown Rx [Phenergan/Codeine 6.25-10 mg/5Ml] Docusate Sodium [Colace] 100 mg PO BID PRN #20 capsule 05/06/16 Unknown Rx HYDROcodone/APAP 5-325 [[place] 1 each PO Q6HR PRN #10 tablet 05/06/16 Unknown Rx 5/325] Cyclobenzaprine [Flexeril] 10 mg PO TID PRN #20 tablet 10/07/16 Unknown Rx Prednisone [predniSONE 5 mg (6-Day 5 mg PO .TAPER #1 tab.ds.pk 10/07/16 Unknown Rx Pack, 21 Tabs)] lisinopriL [Zestril TAB] 20 mg PO QDAY #30 tablet 10/07/16 Unknown Rx metFORMIN [Glucophage] 500 mg PO BID #30 tablet 02/15/17 Unknown Rx Ondansetron (Nf) [Zofran TAB] 4 mg PO Q8HR PRN #20 tablet 05/17/18 Unknown Rx levoFLOXacin [Levaquin TAB] 500 mg PO QDAY 10 Days #10 tablet 05/17/18 Unknown Rx traMADoL [Ultram] 50 mg PO Q6HR PRN #20 tablet 05/17/18 Unknown Rx traMADoL [Ultram 50 MG tab] 50 mg PO Q6HR PRN #12 tablet 07/06/18 Unknown Rx Baclofen 20 mg PO Q8H PRN #15 tablet 11/01/18 Unknown Rx Ibuprofen [Motrin] 800 mg PO Q8HR PRN #20 tablet 11/01/18 Unknown Rx traMADoL [Ultram] 50 mg PO Q6HR PRN #15 tablet 11/01/18 Unknown Rx Allergies Allergy/AdvReac Type Severity Reaction Status Date / Time Penicillins Allergy Swelling Verified 02/21/13 02:27 ED Review of Systems ROS: Stated complaint: HYPERTENSION Other details as noted in HPI Constitutional: other (elevated blood pressure). denies: chills, fever Eyes: denies: eye pain, eye discharge, vision change ENT: denies: ear pain, throat pain Respiratory: denies: cough, shortness of breath, wheezing Cardiovascular: denies: chest pain, palpitations Endocrine: no symptoms reported Gastrointestinal: denies: abdominal pain, nausea, diarrhea Genitourinary: denies: urgency, dysuria Musculoskeletal: denies: back pain, joint swelling, arthralgia Skin: denies: rash, lesions Neurological: denies: headache, weakness, paresthesias Psychiatric: denies: anxiety, depression Hematological/Lymphatic: denies: easy bleeding, easy bruising ED Past Medical Hx - Past Medical History Previous Medical History?: Yes Hx Hypertension: Yes Hx Diabetes: Yes Additional medical history: Rhabdomyolysis. Gout. Pneumonia - Surgical History Past Surgical History?: Yes Additional Surgical History: arm - Social History Smoking Status: Never Smoker Substance Use Type: None - Medications Home Medications: Home Medications Medication Instructions Recorded Confirmed Last Taken Type Omeprazole [PriLOSEC] 20 mg PO DAILY #30 capsule. 07/22/13 11/08/14 11/08/14 Rx Pravastatin Sodium [Pravastatin] 20 mg PO QHS #30 tablet 07/22/13 11/08/14 11/08/14 Rx Azithromycin [Zithromax Z-SERENE] 250 mg PO DAILY #6 tablet 11/08/14 Unknown Rx HYDROcodone/APAP 5-325 [[place] 1 each PO Q8HR PRN #10 tablet 11/08/14 Unknown Rx 5/325] Albuterol Sulfate [Ventolin HFA] 2 puff IH Q4H PRN #1 hfa.aer.ad 03/08/15 Unknown Rx Azithromycin [Zithromax] 250 mg PO QDAY #4 tablet 03/08/15 Unknown Rx Promethazine /Codeine 5 ml PO Q6H PRN #120 ml 03/08/15 Unknown Rx [Phenergan/Codeine 6.25-10 mg/5Ml] Docusate Sodium [Colace] 100 mg PO BID PRN #20 capsule 05/06/16 Unknown Rx HYDROcodone/APAP 5-325 [[place] 1 each PO Q6HR PRN #10 tablet 05/06/16 Unknown Rx 5/325] Cyclobenzaprine [Flexeril] 10 mg PO TID PRN #20 tablet 10/07/16 Unknown Rx Prednisone [predniSONE 5 mg (6-Day 5 mg PO .TAPER #1 tab.ds.pk 10/07/16 Unknown Rx Pack, 21 Tabs)] lisinopriL [Zestril TAB] 20 mg PO QDAY #30 tablet 10/07/16 Unknown Rx metFORMIN [Glucophage] 500 mg PO BID #30 tablet 02/15/17 Unknown Rx Ondansetron (Nf) [Zofran TAB] 4 mg PO Q8HR PRN #20 tablet 05/17/18 Unknown Rx levoFLOXacin [Levaquin TAB] 500 mg PO QDAY 10 Days #10 tablet 05/17/18 Unknown Rx traMADoL [Ultram] 50 mg PO Q6HR PRN #20 tablet 05/17/18 Unknown Rx traMADoL [Ultram 50 MG tab] 50 mg PO Q6HR PRN #12 tablet 07/06/18 Unknown Rx Baclofen 20 mg PO Q8H PRN #15 tablet 11/01/18 Unknown Rx Ibuprofen [Motrin] 800 mg PO Q8HR PRN #20 tablet 11/01/18 Unknown Rx traMADoL [Ultram] 50 mg PO Q6HR PRN #15 tablet 11/01/18 Unknown Rx ED Physical Exam - General Limitations: No Limitations General appearance: alert, in no apparent distress, obese - Head Head exam: Present: atraumatic, normocephalic, normal inspection - Eye Eye exam: Present: normal appearance, PERRL, EOMI Pupils: Present: normal accommodation - ENT ENT exam: Present: normal exam, normal orophraynx, mucous membranes moist, TM's normal bilaterally, normal external ear exam - Neck Neck exam: Present: normal inspection, full ROM - Respiratory Respiratory exam: Present: normal lung sounds bilaterally. Absent: respiratory distress, wheezes, chest wall tenderness, accessory muscle use, decreased breath sounds - Cardiovascular Cardiovascular Exam: Present: regular rate, normal rhythm, normal heart sounds. Absent: systolic murmur, diastolic murmur, rubs, gallop - GI/Abdominal GI/Abdominal exam: Present: soft, normal bowel sounds. Absent: tenderness, guarding, rebound, hyperactive bowel sounds, hypoactive bowel sounds - Extremities Exam Extremities exam: Present: normal inspection, full ROM, normal capillary refill - Back Exam Back exam: Present: normal inspection, full ROM. Absent: tenderness, CVA tenderness (R), CVA tenderness (L), muscle spasm, vertebral tenderness - Neurological Exam Neurological exam: Present: alert, oriented X3, CN II-XII intact, normal gait, reflexes normal - Psychiatric Psychiatric exam: Present: normal affect, normal mood - Skin Skin exam: Present: warm, dry, intact, normal color. Absent: rash ED Course Vital Signs 02/04/20 21:32 Temperature 98.1 F Pulse Rate 65 Respiratory 18 Rate Blood Pressure 148/62 O2 Sat by Pulse 98 Oximetry ED Medical Decision Making - Medical Decision Making This is a 59-year-old -Portuguese male with a history of type 2 diabetes, hypertension, chronic gout who presents to the ED with complaint of persistently elevated blood pressure for the last 4 hours despite taking his regular medications. Patient states that he checked his blood pressure and it was extremely high and decided come to the ED for evaluation. Patient states that the last time he took his blood pressure medications was over 12 hours ago and is scheduled to take another one but wanted to have his blood pressure rechecked first before he could take another dose. In the ED, patient is alert and oriented x3 and is not in distress. Patient's blood pressure was 148/62 and the rest of the vital signs are stable. Patient was eating his dinner during the physical exam and is in no acute distress. Patient will discharge home and advised continue taking his regular medication as previously prescribed and to follow-up with his primary care physician as needed. Patient was advised to return to the ED immediately if symptoms get worse. - Differential Diagnosis Uncontrolled HTN; Headache; Dizziness Critical care attestation.: If time is entered above; I have spent that time in minutes in the direct care of this critically ill patient, excluding procedure time. ED Disposition Clinical Impression: Encounter for well adult exam without abnormal findings Hypertension Qualifiers: Hypertension type: essential hypertension Qualified Code(s): I10 - Essential (primary) hypertension Disposition: DC-01 TO HOME OR SELFCARE Is pt being admited?: No Does the pt Need Aspirin: No Condition: Stable Instructions: Hypertension (ED) Additional Instructions: Take your regular medications for blood pressure as previously advised. Follow- up with your primary care physician as needed and return to the ED immediately if symptoms get worse. Referrals: [facility] [Provider Group] - 3-5 Days Time of Disposition: 23:49 Print Language: HEBREW
[2020-02-05 00:52] VITALS: BP 140/71
== END 2020-02-05 00:53 | disposition home or self-care (01) ==
LOC: ED 21:09
DX: I10 Essential (primary) hypertension (principal); E11.9 Type 2 diabetes mellitus without complications; M62.82 Rhabdomyolysis; M10.9 Gout, unspecified; Z79.899 Other long term (current) drug therapy; Z88.0 Allergy status to penicillin; Z00.00 Encounter for general adult medical examination without abnormal findings
CPT/HCPCS: 99283

== ENCOUNTER 2021-07-25 02:27 | Emergency (ER) | payer MEDICARE ==
[2021-07-25 03:21] VITALS: BP 146/62
--- NOTE | 2021-07-25 06:13 | Emergency Department Report ---
ED General Adult HPI - General Chief complaint: Medical Clearance Stated complaint: ABD PAIN Time Seen by Provider: 07/25/21 06:11 Source: patient Mode of arrival: Ambulatory Limitations: No Limitations - History of Present Illness Initial comments: Patient is homeless. He presented today because he was homeless and he had "no place to go." He does state that he had abdominal pain earlier but that resolved. He was having abdominal pain because "he had not eaten anything." After he ate food, the abdominal pain resolved. It was epigastric in nature and described as "a hollow feeling." Again, he has no abdominal pain at this time. He also reports having pain in the left ankle that has been present for years. Is in the left ankle anteriorly. There was no recent trauma. Has no recent travel. He states that he came here because of the ankle pain. He is not suicidal homicidal. Is not hearing voices. He states he just did not have any place to go. Severity scale (0 -10): 2 - Related Data Previous Rx's Medication Instructions Recorded Last Taken Type Omeprazole [PriLOSEC] 20 mg PO DAILY #30 capsule. 07/22/13 11/08/14 Rx Pravastatin Sodium [Pravastatin] 20 mg PO QHS #30 tablet 07/22/13 11/08/14 Rx Azithromycin [Zithromax Z-SERENE] 250 mg PO DAILY #6 tablet 11/08/14 Unknown Rx HYDROcodone/APAP 5-325 [[place] 1 each PO Q8HR PRN #10 tablet 11/08/14 Unknown Rx 5/325] Albuterol Sulfate [Ventolin HFA] 2 puff IH Q4H PRN #1 hfa.aer.ad 03/08/15 Unknow n Rx Azithromycin [Zithromax] 250 mg PO QDAY #4 tablet 03/08/15 Unknown Rx Promethazine /Codeine 5 ml PO Q6H PRN #120 ml 03/08/15 Unknown Rx [Phenergan/Codeine 6.25-10 mg/5Ml] Docusate Sodium [Colace] 100 mg PO BID PRN #20 capsule 05/06/16 Unknown Rx HYDROcodone/APAP 5-325 [[place] 1 each PO Q6HR PRN #10 tablet 05/06/16 Unknown Rx 5/325] Cyclobenzaprine [Flexeril] 10 mg PO TID PRN #20 tablet 10/07/16 Unknown Rx Prednisone [predniSONE 5 mg (6-Day 5 mg PO .TAPER #1 tab.ds.pk 10/07/16 Unknown Rx Pack, 21 Tabs)] lisinopriL [Zestril TAB] 20 mg PO QDAY #30 tablet 10/07/16 Unknown Rx metFORMIN [Glucophage] 500 mg PO BID #30 tablet 02/15/17 Unknown Rx Ondansetron (Nf) [Zofran TAB] 4 mg PO Q8HR PRN #20 tablet 05/17/18 Unknown Rx levoFLOXacin [Levaquin TAB] 500 mg PO QDAY 10 Days #10 tablet 05/17/18 Unknown Rx traMADoL [Ultram] 50 mg PO Q6HR PRN #20 tablet 05/17/18 Unknown Rx traMADoL [Ultram 50 MG tab] 50 mg PO Q6HR PRN #12 tablet 07/06/18 Unknown Rx Baclofen 20 mg PO Q8H PRN #15 tablet 11/01/18 Unknown Rx Ibuprofen [Motrin] 800 mg PO Q8HR PRN #20 tablet 11/01/18 Unknown Rx traMADoL [Ultram] 50 mg PO Q6HR PRN #15 tablet 11/01/18 Unknown Rx Allergies Allergy/AdvReac Type Severity Reaction Status Date / Time Penicillins Allergy Swelling Verified 02/21/13 02:27 ED Review of Systems ROS: Stated complaint: ABD PAIN Other details as noted in HPI Comment: All other systems reviewed and negative Constitutional: denies: fever Eyes: denies: vision change ENT: denies: epistaxis Respiratory: denies: cough Cardiovascular: denies: chest pain Endocrine: denies: unexplained weight loss Gastrointestinal: as per HPI Genitourinary: denies: dysuria Musculoskeletal: as per HPI Skin: denies: rash Neurological: denies: headache Hematological/Lymphatic: denies: easy bruising ED Past Medical Hx - Past Medical History Previous Medical History?: Yes Hx Hypertension: Yes Hx Diabetes: Yes Additional medical history: Rhabdomyolysis. Gout. Pneumonia - Surgical History Past Surgical History?: Yes Additional Surgical History: arm - Family History Family history: hypertension - Social History Smoking Status: Never Smoker Substance Use Type: None - Medications Home Medications: Home Medications Medication Instructions Recorded Confirmed Last Taken Type Omeprazole [PriLOSEC] 20 mg PO DAILY #30 capsule. 07/22/13 11/08/14 11/08/14 Rx Pravastatin Sodium [Pravastatin] 20 mg PO QHS #30 tablet 07/22/13 11/08/14 11/08/14 Rx Azithromycin [Zithromax Z-SERENE] 250 mg PO DAILY #6 tablet 11/08/14 Unknown Rx HYDROcodone/APAP 5-325 [[place] 1 each PO Q8HR PRN #10 tablet 11/08/14 Unknown Rx 5/325] Albuterol Sulfate [Ventolin HFA] 2 puff IH Q4H PRN #1 hfa.aer.ad 03/08/15 Unknown Rx Azithromycin [Zithromax] 250 mg PO QDAY #4 tablet 03/08/15 Unknown Rx Promethazine /Codeine 5 ml PO Q6H PRN #120 ml 03/08/15 Unknown Rx [Phenergan/Codeine 6.25-10 mg/5Ml] Docusate Sodium [Colace] 100 mg PO BID PRN #20 capsule 05/06/16 Unknown Rx HYDROcodone/APAP 5-325 [[place] 1 each PO Q6HR PRN #10 tablet 05/06/16 Unknown Rx 5/325] Cyclobenzaprine [Flexeril] 10 mg PO TID PRN #20 tablet 10/07/16 Unknown Rx Prednisone [predniSONE 5 mg (6-Day 5 mg PO .TAPER #1 tab.ds.pk 10/07/16 Unknown Rx Pack, 21 Tabs)] lisinopriL [Zestril TAB] 20 mg PO QDAY #30 tablet 10/07/16 Unknown Rx metFORMIN [Glucophage] 500 mg PO BID #30 tablet 02/15/17 Unknown Rx Ondansetron (Nf) [Zofran TAB] 4 mg PO Q8HR PRN #20 tablet 05/17/18 Unknown Rx levoFLOXacin [Levaquin TAB] 500 mg PO QDAY 10 Days #10 tablet 05/17/18 Unknown Rx traMADoL [Ultram] 50 mg PO Q6HR PRN #20 tablet 05/17/18 Unknown Rx traMADoL [Ultram 50 MG tab] 50 mg PO Q6HR PRN #12 tablet 07/06/18 Unknown Rx Baclofen 20 mg PO Q8H PRN #15 tablet 11/01/18 Unknown Rx Ibuprofen [Motrin] 800 mg PO Q8HR PRN #20 tablet 11/01/18 Unknown Rx traMADoL [Ultram] 50 mg PO Q6HR PRN #15 tablet 11/01/18 Unknown Rx ED Physical Exam - General Limitations: No Limitations, Other (Pulse ox noted and normal) General appearance: alert, in no apparent distress - Head Head exam: Present: atraumatic, normocephalic - Eye Eye exam: Present: normal appearance, EOMI. Absent: scleral icterus - ENT ENT exam: Present: normal orophraynx, normal external ear exam - Neck Neck exam: Present: normal inspection. Absent: meningismus - Respiratory Respiratory exam: Present: normal lung sounds bilaterally. Absent: respiratory distress - Cardiovascular Cardiovascular Exam: Present: regular rate, normal rhythm - GI/Abdominal GI/Abdominal exam: Present: soft. Absent: distended, tenderness, guarding, rebound, pulsatile mass - Extremities Exam Extremities exam: Present: pedal edema (Bilateral 1+), joint swelling (Left ankle with mild tenderness anteriorly. No warmth or erythema is noted) - Back Exam Back exam: Absent: CVA tenderness (R), CVA tenderness (L) - Neurological Exam Neurological exam: Present: alert, oriented X3, CN II-XII intact, normal gait. Absent: motor sensory deficit - Psychiatric Psychiatric exam: Present: normal affect, normal mood - Skin Skin exam: Present: warm, dry ED Course Vital Signs 07/25/21 03:11 Temperature 97.6 F Pulse Rate 65 Respiratory 18 Rate Blood Pressure 146/62 [Right] O2 Sat by Pulse 99 Oximetry - Reevaluation(s) Reevaluation #1: 07/25/21 11:14 Patient was discharged. ED Medical Decision Making - Medical Decision Making Patient presented secondary to being homeless. He did report abdominal pain that had resolved prior to arrival. He certainly has no peritoneal finding on exam. There was no pulsatile mass to suggest AAA. He does not have symptoms suggestive of pancreatitis or hepatitis. Patient reported left ankle pain but no trauma. There is no warmth or erythema suggestive of a septic arthritis. This has been ongoing and chronic in nature. He was treated symptomatically. Critical Care Time: No Critical care attestation.: If time is entered above; I have spent that time in minutes in the direct care of this critically ill patient, excluding procedure time. ED Disposition Clinical Impression: Abdominal pain Qualifiers: Abdominal location: generalized Qualified Code(s): R10.84 - Generalized abdominal pain Left ankle pain Qualifiers: Chronicity: chronic Qualified Code(s): M25.572 - Pain in left ankle and joints of left foot Disposition: 01 HOME / SELF CARE / HOMELESS Is pt being admited?: No Condition: Stable Instructions: How to Use Cold Therapy, [id number], Abdominal Pain, Adult, [id number] Additional Instructions: Apply ice to sore areas. Drink water. Return for problems. Follow-up with a regular doctor. Referrals: PRIMARY MD DAXA [Primary Care Provider] - 3-5 Days ANOOP CHIN MD [Staff Physician] - 3-5 Days
== END 2021-07-25 06:38 | disposition home or self-care (01) ==
LOC: ED 02:27
DX: R10.9 Unspecified abdominal pain (principal); M25.572 Pain in left ankle and joints of left foot; I10 Essential (primary) hypertension; E11.8 Type 2 diabetes mellitus with unspecified complications; Z88.0 Allergy status to penicillin
CPT/HCPCS: 99282